=== PATIENT | male | born 1940 | race Asian ===

== ENCOUNTER 2019-02-16 10:45 | Emergency (ER) | payer OTHER ==
[~2019-02-16] VITALS: Ht 160 cm; Wt 54.5 kg
[2019-02-16 10:51] VITALS: BP 125/47; Ht 160 cm; Wt 54.5 kg
== END 2019-02-16 12:35 | disposition home or self-care (01) ==
LOC: ED 10:45
DX: H10.211 Acute toxic conjunctivitis, right eye (principal); I10 Essential (primary) hypertension

== ENCOUNTER 2019-04-19 21:11 | Inpatient (IN) | payer OTHER ==
[~2019-04-19] VITALS: Ht 160 cm; Wt 56.0 kg
[2019-04-19 21:13] VITALS: Ht 160 cm; Wt 56.0 kg
[2019-04-19 21:54] LABS: BASOPHIL % 0.4 % (0-2); PLATELET COUNT 196 x10^3mcL (130-400); RED CELL DISTRIBUTION WIDTH 12.9 % (11.5-14.5)
[2019-04-19 21:55] LABS: CALCIUM 8.9 mg/dL (8.5-10.1); CARBON DIOXIDE 31.7 mmol/L (21-32); CHLORIDE SERUM 104 mmol/L (98-107); CREATININE SERUM 0.9 mg/dL (0.7-1.3); GLUCOSE SERUM 119 mg/dL (74-106); POTASSIUM SERUM 4.5 mmol/L (3.5-5.1); SODIUM SERUM 139 mmol/L (136-145)
[2019-04-19 21:59] LABS: ALBUMIN 3.7 g/dL (3.4-5.0); ALKALINE PHOSPHATASE 62 U/L (46-116); ALT/SGPT 51 U/L (16-63); AST/SGOT 35 U/L (15-37); BILIRUBIN TOTAL 0.4 mg/dL (0.20-1.00); MAGNESIUM 2.1 mg/dL (1.8-2.4); PHOSPHOROUS 4.1 mg/dL (2.5-4.9)
[2019-04-20 02:41] LABS: microscopic required? NO
[2019-04-20 03:18] LABS: UA SPECIFIC GRAVITY 1.015 (1.005-1.035); urine erythrocyte NEGATIVE (NEGATIVE)
[2019-04-20] MEDS ORDERED: BENAZEPRIL HYDR40 M1 PO (05:24)
[2019-04-20] MEDS ORDERED: ZOCOR20 MG PO (05:24)
[2019-04-20] MEDS ORDERED: AVODART0.5 M1 PO (05:25)
[2019-04-20] MEDS ORDERED: GOOD SENSE ASPI81 M3 PO (05:25)
[2019-04-20 07:26] LABS: BASOPHIL % 0.4 % (0-2)
[2019-04-20 07:29] LABS: PLATELET COUNT 170 x10^3mcL (130-400); RED CELL DISTRIBUTION WIDTH 12.9 % (11.5-14.5)
[2019-04-20 08:04] VITALS: BP 143/94
[2019-04-20 11:26] LABS: CALCIUM 8.3 mg/dL (8.5-10.1); CARBON DIOXIDE 22.4 mmol/L (21-32); CHLORIDE SERUM 109 mmol/L (98-107); CREATININE SERUM 0.7 mg/dL (0.7-1.3); GLUCOSE SERUM 112 mg/dL (74-106); SODIUM SERUM 145 mmol/L (136-145)
[2019-04-20 11:49] VITALS: BP 117/90
[2019-04-20 11:53] LABS: CHOLESTEROL/HDL RATIO 3.6; MAGNESIUM 2.2 mg/dL (1.8-2.4); PHOSPHOROUS 3.9 mg/dL (2.5-4.9)
[2019-04-20 15:41] LABS: AMPHETAMINE QUAL UR NONE DETECTED (See below)
[2019-04-20 16:26] VITALS: BP 103/54; BP 134/88
[2019-04-20 20:49] VITALS: BP 115/85
[2019-04-21 05:37] VITALS: BP 109/79
[2019-04-21 07:31] LABS: BASOPHIL % 0.3 % (0-2); PLATELET COUNT 169 x10^3mcL (130-400); RED CELL DISTRIBUTION WIDTH 13.2 % (11.5-14.5)
[2019-04-21 07:43] LABS: CALCIUM 8.4 mg/dL (8.5-10.1); CARBON DIOXIDE 25.4 mmol/L (21-32); CHLORIDE SERUM 106 mmol/L (98-107); CREATININE SERUM 0.8 mg/dL (0.7-1.3); GLUCOSE SERUM 110 mg/dL (74-106); PHOSPHOROUS 4.2 mg/dL (2.5-4.9); SODIUM SERUM 139 mmol/L (136-145)
[2019-04-21 07:57] VITALS: BP 119/87
[2019-04-21 11:56] VITALS: BP 116/74
[2019-04-21 17:06] VITALS: BP 115/80
[2019-04-21 19:48] VITALS: BP 110/81
[2019-04-22 05:00] VITALS: BP 108/78
[2019-04-22 06:33] LABS: BASOPHIL % 0.3 % (0-2); PLATELET COUNT 178 x10^3mcL (130-400); RED CELL DISTRIBUTION WIDTH 13.2 % (11.5-14.5)
[2019-04-22 07:02] LABS: CALCIUM 8.7 mg/dL (8.5-10.1); CARBON DIOXIDE 28.4 mmol/L (21-32); CHLORIDE SERUM 105 mmol/L (98-107); CREATININE SERUM 0.9 mg/dL (0.7-1.3); GLUCOSE SERUM 111 mg/dL (74-106); MAGNESIUM 1.9 mg/dL (1.8-2.4); PHOSPHOROUS 4.7 mg/dL (2.5-4.9); POTASSIUM SERUM 4.2 mmol/L (3.5-5.1); SODIUM SERUM 141 mmol/L (136-145)
[2019-04-22 07:31] VITALS: BP 111/81
[2019-04-22 12:10] VITALS: BP 112/81
[2019-04-22 16:35] VITALS: BP 122/87
[2019-04-22 19:45] VITALS: BP 123/88
[2019-04-23 06:23] LABS: BASOPHIL % 0.4 % (0-2); PLATELET COUNT 185 x10^3mcL (130-400); RED CELL DISTRIBUTION WIDTH 12.8 % (11.5-14.5)
[2019-04-23 07:10] LABS: CALCIUM 8.9 mg/dL (8.5-10.1); CARBON DIOXIDE 28.8 mmol/L (21-32); CHLORIDE SERUM 101 mmol/L (98-107); CREATININE SERUM 0.8 mg/dL (0.7-1.3); GLUCOSE SERUM 97 mg/dL (74-106); MAGNESIUM 2.2 mg/dL (1.8-2.4); PHOSPHOROUS 3.9 mg/dL (2.5-4.9); POTASSIUM SERUM 4.3 mmol/L (3.5-5.1); SODIUM SERUM 136 mmol/L (136-145)
[2019-04-23 07:27] VITALS: BP 119/81
[2019-04-23 11:04] VITALS: BP 116/86
[2019-04-23 16:03] VITALS: BP 138/94
[2019-04-23 19:14] VITALS: BP 136/92
[2019-04-24 06:04] VITALS: BP 145/76
[2019-04-24 07:51] LABS: BASOPHIL % 0.4 % (0-2); PLATELET COUNT 214 x10^3mcL (130-400); RED CELL DISTRIBUTION WIDTH 13.2 % (11.5-14.5)
[2019-04-24 08:47] VITALS: BP 155/82
[2019-04-24 12:03] VITALS: BP 145/78
[2019-04-24 16:22] VITALS: BP 159/84
[2019-04-24] MEDS ORDERED: ELIQUIS5 MG PO (18:09)
[2019-04-24] MEDS ORDERED: COR200 PO (18:12)
[2019-04-24] MEDS ORDERED: METOPROLOL TART50 MG PO (18:14)
[2019-04-24] MEDS ORDERED: TENORMIN50 MG PO (18:35)
[2019-04-24 18:42] VITALS: BP 159/84
== END 2019-04-24 19:13 | disposition home or self-care (01) | DRG 205 ==
LOC: ED 21:11 → DU 04-20 05:18
PROVIDERS: Emergency Medicine; ADMIT Family Medicine
DX: M94.0 Chondrocostal junction syndrome [Tietze] (principal); N17.0 Acute kidney failure with tubular necrosis; I48.92 Unspecified atrial flutter; G90.9 Disorder of the autonomic nervous system, unspecified; M54.2 Cervicalgia; I10 Essential (primary) hypertension; E78.5 Hyperlipidemia, unspecified; Z79.82 Long term (current) use of aspirin; Z87.891 Personal history of nicotine dependence; Z68.21 Body mass index [BMI] 21.0-21.9, adult
CPT/HCPCS: 83880; 87804; 92526-GN; 92610-GN; 97116-GP; G0378; J2405; J7030; Q0092; Q9967